=== PATIENT | male | born 1980 | race Caucasian/White ===

== ENCOUNTER 2021-06-11 10:40 | Inpatient (IN) | payer OTHER ==
[~2021-06-11] VITALS: Ht 170.2 cm; Wt 67.5 kg
--- NOTE | 2021-06-11 14:00 | NUR ---
ADMISSION: PT HERE TRANSFER TO ROOM 210. PN CALL SURGEON AND HOSPITALIST NOTIFIED OF ARRIVAL. PT HAS NO ORDERS. PT COMPLAINS OF 10/10 PAIN IN RIGHT ARM. ELEVATED ON PILLOWS FOR COMFORT. VSS. AFEBRILE. WILL AWAIT ORDERS AND CONTINUE TO MONITOR PATIENT.
[2021-06-11 17:06] LABS: Hemoglobin 21.3 g/dL (13.5-17.5); Mean Corpuscular HGB 29.5 pg (26.0-34.0); Mean Corpuscular HGB Conc 35.4 g/dL (31.5-36.5); Mean Corpuscular Volume 83 fL (80-100); Platelet Count 333 K/mm3 (150-400); RDW Coefficient Variation 13.3 % (11.7-14.2); RDW Standard Deviation 38.9 fL (35.1-46.3); Red Blood Cell Count 7.23 M/mm3 (4.30-5.90); White Blood Cell Count 47.42 K/mm3 (4.00-11.30)
[2021-06-11 17:12] LABS: Hematocrit 60.2 % (37.0-53.0)
[2021-06-11 17:30] LABS: Alanine Aminotransfer (ALT/SGP 14 U/L (12-78); Albumin, Blood 1.9 g/dL (3.4-5.0); Albumin/Globulin Ratio 0.5 (0.8-1.8); Alk Phos 74 U/L (50-136); Anion Gap 12 mmol/L (6-16); Aspartate Aminotrans (AST/SGOT 32 U/L (12-37); Bilirubin, Total 0.7 mg/dL (0.1-1.0); Blood Urea Nitrogen 18 mg/dL (8-24); Bun/Creatinine Ratio 27.1 (12.0-20.0); CO2, Blood 20 mmol/L (21-32); CPK Creatine Kinase 460 U/L (39-308); Calcium, Blood 7.7 mg/dL (8.5-10.1); Chloride, Blood 95 mmol/L (98-108); Creatinine, Blood 0.66 mg/dL (0.60-1.20); Glomerular Filtration Rate >60 (60-); Glucose, Blood 209 mg/dL (70-99); Potassium, Blood 5.1 mmol/L (3.5-5.5); Sodium, Blood 127 mmol/L (136-145); Total Protein, Blood 5.9 g/dL (6.4-8.2)
[2021-06-11 17:31] LABS: Creatine Kinase MB 4.9 ng/mL (0.0-3.6); Creatine Kinase MB Index 1.1 (0.0-4.0)
[2021-06-11 18:21] LABS: BAND PERCENT MAN 3 % (0-8); BASOPHILS PERCENT MAN 0 % (0-2); EOSINOPHILS PERCENT MAN 0 % (0-6); LYMPHOCYTES ABSOLUTE MAN 4.74 K/mm3 (0.84-5.20); LYMPHOCYTES PERCENT MAN 10 % (21-46); METAMYELOCYTE ABSOLUTE MAN 0.47 K/mm3 (0.00-0.00); METAMYELOCYTE PERCENT MAN 1 % (0-0); MONOCYTES ABSOLUTE MAN 2.37 K/mm3 (0.16-1.47); MONOCYTES PERCENT MAN 5 % (4-13); MYELOCYTE ABSOLUTE MAN 1.42 K/mm3 (0.00-0.00); MYELOCYTE PERCENT MAN 3 % (0-0); NEUTROPHILS ABSOLUTE MAN 37.93 K/mm3 (1.96-9.15); PROMYELOCYTE ABSOLUTE MAN 0.47 K/mm3 (0.00-0.00); PROMYELOCYTE PERCENT MAN 1 % (0-0); SEG NEUTROPHILS PERCENT MAN 77 % (41-73); TOTAL CELLS COUNTED 100
--- NOTE | 2021-06-11 18:49 | NUR ---
PT HAS HAD HIGH PAIN SINCE ADMISSION. PT STARTED TO HAVE WITHDRAWL SYMPTOMS PRIOR TO MED ORDERS. PT NOW GETTING DILAUDID AND IMPROVED. LABS REPEATED THIS AFTERNOON, ORTHO DOCTOR DECIDED TO TAKE PT TO OR FOR I+D. NS INFUSING AT 150. PT CONTINUING ABX. PT MEDICATED WITH ZOFRAN X1, EFFECTIVE. PT VOIDING DARK ARABELLA URINE. PICC LINE PLACED THIS AFTERNOON. PT USES CALL LIGHT APPROPRIATELY.
--- NOTE | 2021-06-11 20:41 | NUR ---
06/11/212040 Anjana Cordova PT ON SCHEDULED ANTIBIOTICS
--- NOTE | 2021-06-11 22:07 | NUR ---
ARRIVAL TO PCU 11 PATIENT ARRIVED FROM PACU ON HOSPITAL BED. SURGICAL ARM WRAPPED WITH JOSÉ MIGUEL BANDAGE. EXPOSED ARM COOL TO TOUCH WITH MOTTLED APPEARANCE ON EXPOSED UPPER ARM, SWELLING TO RIGHT HAND, CAP REFILL LESS THAN 3 SECONDS ON RIGHT HAND. PATIENT COMPLAINING THAT HE CANNOT URINATE, BLADDER SCAN PERFORMED WITH 18MLS IN BLADDER. HAWKINS CATHETER IN PLACE DRAINING CLEAR/YELLOW URINE. PLAN IS TO [facility] TRANSFER TO [facility]. WILL CONTINUE TO MONITOR.
--- NOTE | 2021-06-12 00:32 | NUR ---
TRANSFER NOTE GAVE REPORT TO ALPESH DURAN AT [facility]. PATIENT MEDICATED FOR PAIN AND NAUSEA BEFORE LEAVING. BELONGINGS SENT WITH PATIENT. VSS UPON LEAVING UNIT.
== END 2021-06-12 00:03 | disposition short-term general hospital (02) | DRG 853 ==
LOC: SURS 10:40 → PCU 21:27
PROVIDERS: Orthopaedic Surgery; ADMIT Internal Medicine
PROC: 0JBD0ZZ Excision of Right Upper Arm Subcutaneous Tissue and Fascia, Open Approach (ICD-10-PCS; principal; 2021-06-11 18:30)
DX: A41.9 Sepsis, unspecified organism (principal); R65.21 Severe sepsis with septic shock; M72.6 Necrotizing fasciitis; L03.113 Cellulitis of right upper limb; F11.10 Opioid abuse, uncomplicated
CPT/HCPCS: 36569; 80053; 82550; 82553; 83605; 85025; 85651; 86140; 87070; 87075; 87076; 87205; C1751; J1100; J1170; J2250; J2370; J2405; J2543; J2704; J3010; J3370; J7030; J7050